=== PATIENT | female | born 1970 | race Caucasian/White ===

== ENCOUNTER 2018-05-17 12:40 | Emergency (ER) | payer OTHER ==
[~2018-05-17] VITALS: Ht 175.3 cm; Wt 64.9 kg
--- NOTE | 2018-05-17 12:53 | NUR ---
DR Garcia at the bedside for MSE.
--- NOTE | 2018-05-17 12:55 | NUR ---
PT WALKED INTO ER WITH PARENTS CO "DRINKING TOO MUCH". PT AXOX4, DENIES [place] WITHDRAWAL JUST BEING ANXIOUS AND NOT FEELNG WELL. PRT EVENTUALLY PLANNNG TO GO TO [facility] FOR AC[facility] RE[facility]. [facility] CONTACTED ALREADY. [facility] AWARE OF THE PT COMING TO THEM.
[2018-05-17 13:12] LABS: BASOPHILS # (AUTO) 0.1 K/uL (0.0-8.0); BASOPHILS % (AUTO) 1.2 % (0.0-2.0); EOSINOPHILS # (AUTO) 0.1 K/uL (0.0-0.7); EOSINOPHILS % (AUTO) 1.7 % (0.0-7.0); HEMATOCRIT 42.1 % (31.2-41.9); HEMOGLOBIN 14.3 g/dL (10.9-14.3); LYMPHOCYTES # (AUTO) 1.8 K/uL (20.0-40.0); LYMPHOCYTES % (AUTO) 31.2 % (20.5-51.5); MEAN CORPUSCULAR HGB CONC 34 g/dL (32.3-35.6); MEAN CORPUSCULAR VOLUME 106.1 fL (75.5-95.3); MONOCYTES # (AUTO) 0.4 K/uL (2.0-10.0); MONOCYTES % (AUTO) 6.2 % (0.0-11.0); NEUTROPHILS # (AUTO) 3.4 K/uL (1.8-8.9); NEUTROPHILS % (AUTO) 59.7 % (38.5-71.5); PLATELET COUNT (AUTO) 307 K/uL (179-408); RED BLOOD CELL COUNT(AUTO) 3.97 MIL/uL (3.63-4.92); WHITE BLOOD COUNT (AUTO) 5.7 K/uL (3.8-11.8)
[2018-05-17 13:21] LABS: CARBON DIOXIDE 23 mmol/L (21-32); CHLORIDE 103 mmol/L (98-107); CREATININE 0.6 mg/dL (0.6-1.3); GLUCOSE 132 mg/dL (74-106); POTASSIUM 3.9 mmol/L (3.5-5.1); UREA NITROGEN, BLOOD 12 mg/dL (7-18)
[2018-05-17 13:26] LABS: ALANINE AMINOTRANSFERASE 85 U/L (14-59); ALKALINE PHOSPHATASE 132 U/L (50-136); ASPARTATE AMINOTRANSFERASE 98 U/L (15-37); BILIRUBIN,DIRECT 0.2 mg/dL (0.0-0.2); BILIRUBIN,TOTAL 0.3 mg/dL (0.2-1.0); TOTAL PROTEIN, SERUM 7.7 g/dL (6.4-8.2)
[2018-05-17 13:27] LABS: ACETAMINOPHEN < 2.0 ug/mL (10-30)
[2018-05-17 13:30] LABS: *AMPHETAMINE, URINE NEGATIVE (NEGATIVE); *BARBITURATE, URINE NEGATIVE (NEGATIVE); *CANNABINOID, URINE NEGATIVE (NEGATIVE); *COCCAINE, URINE NEGATIVE (NEGATIVE); *OPIATE, URINE NEGATIVE (NEGATIVE); *PHENCYCLIDINE SCREEN,URINE NEGATIVE (NEGATIVE)
[2018-05-17 13:43] LABS: ETHANOL 382 MG/DL (0-0)
--- NOTE | 2018-05-17 13:49 | NUR ---
[facility]ERSON[facility] AT BEDSIDETALKING TO PT AND FAMILY MEMBERS
[2018-05-17 13:55] VITALS: BP 109/81
[2018-05-17] MEDS ORDERED: SUMA100T16 PO (16:17)
[2018-05-17] MEDS ORDERED: LEVO137T2 PO (16:17)
[2018-05-17] MEDS ORDERED: PHEN-824 PO (16:17)
[2018-05-17] MEDS ORDERED: AMOX1TAB16 PO (16:17)
[2018-05-17] MEDS ORDERED: RANI150T43 PO (16:17)
[2018-05-17] MEDS ORDERED: MELO-107 PO (16:17)
[2018-05-17] MEDS ORDERED: CHOL200059 PO (16:17)
[2018-05-17] MEDS ORDERED: TELM1TAB2 PO (16:17)
[2018-05-17] MEDS ORDERED: PHEN-633 PO (16:17)
[2018-05-17] MEDS ORDERED: ZOLP10TA6 PO (16:17)
[2018-05-17] MEDS ORDERED: ONDA4TAB11 PO (16:17)
[2018-05-17] MEDS ORDERED: FURO40TA5 PO (16:17)
[2018-05-17] MEDS ORDERED: ESCI20TA PO (16:17)
[2018-05-17] MEDS ORDERED: TOPI50TA24 PO (16:17)
[2018-05-17] MEDS ORDERED: METO100T7 PO (16:17)
[2018-05-17] MEDS ORDERED: FAMO-132 PO (16:17)
[2018-05-17 19:35] LABS: *BILIRUBIN,URIN NEGATIVE (NEGATIVE); *BLOOD, URINE Trace-lysed (NEGATIVE); *COLOR,URINE YELLOW (YELLOW); *KETONES,URINE NEGATIVE (NEGATIVE); *PROTEIN,URINE NEGATIVE (NEGATIVE); *UROBILINOGEN,URINE 0.2 E.U./dl (NORMAL); LEUKOCYTE ESTERASE ,URINE TRACE (NEGATIVE); NITRITE, URINE NEGATIVE (NEGATIVE); UGLUCOSE NEGATIVE (NEGATIVE)
[2018-05-17 19:41] LABS: *CLARITY,URINE SLIGHTLY CLOUDY (CLEAR)
[2018-05-17 19:43] LABS: BACTERIA,URINE RARE /HPF (NONE SEEN); SQUAMOUS EPITHELIAL CELL,UR FEW /HPF (NONE SEEN); WBC,URINE 0-3 /HPF (0-3)
[2018-05-21] MEDS ORDERED: ESCI20TA PO (13:15)
[2018-05-21] MEDS ORDERED: CLON0.1T14 PO (13:15)
[2018-05-21] MEDS ORDERED: HYDR-3895 PO (13:15)
[2018-05-21] MEDS ORDERED: QUET25TA PO (13:15)
== END 2018-05-17 13:56 | disposition home or self-care (01) ==
LOC: ER 12:40
DX: Z04.6 Encounter for general psychiatric examination, requested by authority (principal); F10.129 Alcohol abuse with intoxication, unspecified; Z90.710 Acquired absence of both cervix and uterus; Z88.0 Allergy status to penicillin; Z88.8 Allergy status to other drugs, medicaments and biological substances; Z91.041 Radiographic dye allergy status; Z91.040 Latex allergy status
CPT/HCPCS: 36415; 80048; 80076; 80307; 81001; 85025; 99283; G0480 ×2; G0481; A4663

== ENCOUNTER 2018-05-17 14:20 | Inpatient (IN) | payer OTHER ==
[~2018-05-17] VITALS: Ht 172.7 cm; Wt 63.5 kg
--- NOTE | 2018-05-17 15:15 | NUR ---
Pre admission Pre-admission assessment performed in the intake department of [facility]. Pt is A&O and ambulatory with a steady gait. She appears mildly intoxicated but answers questions appropriately. Vital signs are: B/P 139/87, HR 105, RR 16, O2 sat 96%, T 98.2. She is noted with facial flushing and is emotional with a loud tone of voice during the intake process. She reports that she has been drinking Wine 1-3 bottles of 750mL/day. She reports that she drank one glass this morning. Pt is stable and admission is [facility].
[2018-05-17 15:30] VITALS: BP 139/87
[2018-05-17] MEDS ORDERED: ZOLP10TA6 PO (16:17)
[2018-05-17] MEDS ORDERED: TOPI50TA24 PO (16:17)
[2018-05-17] MEDS ORDERED: SUMA100T16 PO (16:17)
[2018-05-17] MEDS ORDERED: PHEN-824 PO (16:17)
[2018-05-17] MEDS ORDERED: AMOX1TAB16 PO (16:17)
[2018-05-17] MEDS ORDERED: PHEN-633 PO (16:17)
[2018-05-17] MEDS ORDERED: RANI150T43 PO (16:17)
[2018-05-17] MEDS ORDERED: CHOL200059 PO (16:17)
[2018-05-17] MEDS ORDERED: TELM1TAB2 PO (16:17)
[2018-05-17] MEDS ORDERED: LEVO137T2 PO (16:17)
[2018-05-17] MEDS ORDERED: FAMO-132 PO (16:17)
[2018-05-17] MEDS ORDERED: MELO-107 PO (16:17)
[2018-05-17] MEDS ORDERED: METO100T7 PO (16:17)
[2018-05-17] MEDS ORDERED: FURO40TA5 PO (16:17)
[2018-05-17] MEDS ORDERED: ESCI20TA PO (16:17)
[2018-05-17] MEDS ORDERED: ONDA4TAB11 PO (16:17)
[2018-05-17] MEDS ORDERED: LORAZEPAM 2 MG/1 ML VIAL IM PRN (16:30)
[2018-05-17] MEDS ORDERED: LOPERAMIDE HCL 2 MG CAPSULE PO PRN ×2 (16:30)
[2018-05-17] MEDS ORDERED: DIAZEPAM 5 MG TABLET PO PRN (16:30)
[2018-05-17] MEDS ORDERED: diphenhydrAMINE 50 MG CAPSULE PO PRN (16:30)
[2018-05-17] MEDS ORDERED: MAGNESIUM HYDROXIDE 30 ML LIQUID UDC PO PRN (16:30)
[2018-05-17] MEDS ORDERED: MIRALAX 17 GM POWD.PACK PO PRN (16:30)
[2018-05-17] MEDS ORDERED: DIAZEPAM 10 MG TABLET PO PRN ×2 (16:30)
[2018-05-17] MEDS ORDERED: MAG HYDROX/AL HYDROX/SIMETH 30 ML LIQUID UDC PO PRN (16:30)
[2018-05-17] MEDS ORDERED: ONDANSETRON 4 MG/2 ML VIAL IM PRN (16:30)
[2018-05-17 17:09] VITALS: BP 126/79
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
[2018-05-17 18:16] LABS: *URINE HCG, QUAL NEGATIVE (NEGATIVE)
[2018-05-17] MEDS ORDERED: THIAMINE HCL 200 MG/2 ML VIAL IM ONE (18:22)
[2018-05-17] MEDS: CLONIDINE HCL 0.1 MG TABLET PO PRN (18:48)
--- NOTE | 2018-05-17 18:48 | NUR ---
PRN GIVEN Pt was c/o anxiety and stating she wants to go home. Clonidine 0.1mg PO PRN was given as ordered. Encouraged increase fluid intake. Will continue to monitor.
--- NOTE | 2018-05-17 19:10 | NUR ---
END OF SHIFT Endorsed to manager shift nurse, 47 yr old female, AA&Ox4. Pt is a newly admit for ETOH withdrawal and is to start on 4 day Valium taper tomorrow on 05/18/18. Pt was c/o anxiety and stating she want to go home. Clonidine 0.1mg PO PRN was given. Pt is on fall and seizure precautions. Call light is within reach.
--- NOTE | 2018-05-17 19:45 | NUR ---
START OF SHIFT NOTE Rcvd report from outgoing nurse. Pt is a 47 y/o female A/O to person, place, time, and purpose. Pt was admitted for medically supervised withdrawal from ETOH. Pt is to start a 4 day Valium taper 05/18. Pt has been intoxicated upon arrival to the unit and has not currently been experiencing any s/s of withdrawal expect for agitation. Pt rcvd PRN Clonidine and was noted effective by outgoing nurse. Call light is within reach. Pt will continue to be monitored and needs met.
--- NOTE | 2018-05-17 19:48 | NUR ---
PRN CLONIDINE REASSESSMENT Pt is obviously anxious and restless. Medication noted ineffective. Will assess giving PRN Valium.
[2018-05-17 20:03] VITALS: BP 121/79
--- NOTE | 2018-05-17 20:12 | NUR ---
CIWA ASSESSMENT CIWA 16. Pt presenting w/ tremors, sweats, flushing, body aches, nausea w/ no emesis, anxiety, and restlessness. V/S: T:97.9, P:91, RR:16, SPO2:97, BP:121/79.
[2018-05-17] MEDS: IBUPROFEN 600 MG TABLET PO PRN (20:39)
--- NOTE | 2018-05-17 20:39 | NUR ---
PRN VALIUM, MOTRIN, AND BENADRYL ADMINISTRATION Valium 20mg for CIWA of 16, Motrin 600mg for body aches/pain, and Benadryl 50mg for sleep were given. Will reassess pt in 1 hr.
[2018-05-17] MEDS: ONDANSETRON ODT 4 MG TAB.RAPDIS SL PRN (20:48)
--- NOTE | 2018-05-17 20:48 | NUR ---
PRN ZOFRAN ADMINISTRATION Zofran 4mg SL given for nausea w/ no emesis. Will reassess pt in 1 hr.
--- NOTE | 2018-05-17 21:39 | NUR ---
PRN VALIUM, MOTRIN, AND BENADRYL REASSESSMENT Pt is in bed w/ her eyes closed. Pt's respirations are unlabored and even.
--- NOTE | 2018-05-17 21:48 | NUR ---
PRN ZOFRAN REASSESSMENT Pt is im bed w/ her eyes closed. Pt's respirations are unlabored and even.
[2018-05-17] MEDS ORDERED: Medication Not On Formulary EA (Meloxicam 15 MG) PO SCH (22:00)
[2018-05-17] MEDS ORDERED: Medication Not On Formulary EA (Topiramate 50 MG) PO SCH (22:00)
[2018-05-17] MEDS ORDERED: AMOXICILLIN-CLAVUL 875-125MG TABLET PO ONE (22:45)
[2018-05-17] MEDS ORDERED: AMOXICILLIN-CLAVUL 875-125MG TABLET ONE (23:01)
[2018-05-17] MEDS: TOPIRAMATE 25 MG TABLET PO SCH (23:06)
--- NOTE | 2018-05-18 00:12 | NUR ---
CIWA DEFERRED Pt is in bed w/ her eyes closed. Pt's respirations are unlabored and even.
--- NOTE | 2018-05-18 04:05 | NUR ---
CIWA DEFERRED Pt is in bed w/ her eyes closed. Pt's respirations are unlabored and even.
--- NOTE | 2018-05-18 07:09 | NUR ---
END OF SHIFT NOTE Endorsed pt to oncoming nurse. Pt is a 47 y/o female A/O to person, place, time, and purpose. Pt was admitted for medically supervised withdrawal from ETOH. Pt is to start a 4 day Valium taper 05/18. Pt began to present w/ anxiety, agitation, restless legs, sweats, tremors, and chills. Pt denies any S/I or H/I. PRN Valium for CIWA of 16, Motrin for body aches, Benadryl for sleep, and Zofran for nausea were given and noted effective. Pts fluid intake was 1500ml and she slept for 9hrs. Last CIWA 16 @ 1999. Call light is within reach.
--- NOTE | 2018-05-18 07:35 | NUR ---
START OF SHIFT Pt is a 47 yr old female, AA&Ox4. Pt was admitted on 05/17/18 for ETOH withdrawal and is to start on 4 day Valium taper as ordered. Received report from vehicle sales professional nurse. Pt was given Valium PRN, Motrin PRN, Benadryl PRN and Zofran PRN during the night. Medication was effective. Pt slept for 9 hrs. Last CIWA score was 16. Pt is c/o body aches, anxiety, sweats and chills. Pt is noted with tremors on BUE. Skin is warm and moist to touch. Pt was encouraged increase fluid intake. Safety precautions observed. Call light is within reach. Will continue to monitor.
[2018-05-18 07:48] LABS: EOSINOPHILS # (AUTO) 0.1 K/uL (0.0-0.7); EOSINOPHILS % (AUTO) 2.7 % (0.0-7.0); HEMATOCRIT 38.8 % (31.2-41.9); HEMOGLOBIN 13.2 g/dL (10.9-14.3); LYMPHOCYTES % (AUTO) 21.2 % (20.5-51.5); MEAN CORPUSCULAR HEMOGLOBIN 36.2 uug (24.7-32.8); MEAN CORPUSCULAR HGB CONC 34 g/dL (32.3-35.6); MEAN CORPUSCULAR VOLUME 106.3 fL (75.5-95.3); MONOCYTES # (AUTO) 0.2 K/uL (2.0-10.0); MONOCYTES % (AUTO) 5.1 % (0.0-11.0); NEUTROPHILS # (AUTO) 3.3 K/uL (1.8-8.9); PLATELET COUNT (AUTO) 202 K/uL (179-408); RED BLOOD CELL COUNT(AUTO) 3.65 MIL/uL (3.63-4.92); WHITE BLOOD COUNT (AUTO) 4.8 K/uL (3.8-11.8)
[2018-05-18] MEDS: LEVOTHYROXINE SODIUM 137 MCG TABLET PO SCH (07:53)
[2018-05-18 08:00] VITALS: BP 121/81
[2018-05-18 08:08] LABS: BILIRUBIN,TOTAL 1.2 mg/dL (0.2-1.0); CREATININE 0.6 mg/dL (0.6-1.3); POTASSIUM 4.4 mmol/L (3.5-5.1); TOTAL PROTEIN, SERUM 6.8 g/dL (6.4-8.2)
[2018-05-18 08:19] LABS: THYROID STIMULATING HORMONE 2.537 mIU/mL (0.358-3.740)
[2018-05-18] MEDS: MULTIVITAMINS,THERAPEUTIC TABLET PO SCH (08:43)
[2018-05-18] MEDS: TOPIRAMATE 25 MG TABLET PO SCH ×2 (08:43→16:32)
[2018-05-18] MEDS: CHOLECALCIFEROL 1,000 UNIT TABLET PO SCH (08:43)
[2018-05-18] MEDS: THIAMINE HCL 100 MG TABLET PO SCH (08:43)
[2018-05-18] MEDS: IBUPROFEN 600 MG TABLET PO PRN (08:43)
[2018-05-18] MEDS: DIAZEPAM 5 MG TABLET PO SCH ×4 (08:43→20:47)
[2018-05-18] MEDS: FOLIC ACID 1 MG TABLET PO SCH (08:43)
--- NOTE | 2018-05-18 08:43 | NUR ---
PRN GIVEN Pt was c/o BLE pain 5/10 and was observed wit restless legs. Pt is fidgety in bed and observed flushed. CIWA score at 0800 was 14. Pt was given Motrin 600mg PO PRN for pain mgt. Pt was encouraged increase fluid intake for hydration. Will continue to monitor.
--- NOTE | 2018-05-18 08:45 | NUR ---
MEDICATION REFUSE Pt refused to take Metoprolol Succinate 100mg PO as scheduled at 0900. Pt states, "I only take that in case of emergencies". was made aware. Will continue to f/u.
[2018-05-18] MEDS ORDERED: METOPROLOL SUCCINATE XL 50 MG TAB.SR.24H PO SCH (09:00)
[2018-05-18] MEDS ORDERED: [UNRECOGNIZED DRUG - OTHER] PO SCH (09:00)
[2018-05-18] MEDS ORDERED: TUBERCULIN,PURIF.PROT.DERIV. 5 TU/0.1 ML TEST ID ONE (09:00)
[2018-05-18] MEDS ORDERED: 4 DAY TAPER VALIUM-SERENITY PROTOCOL PO PRN (09:00)
--- NOTE | 2018-05-18 09:43 | NUR ---
PRN RE-ASSESSMENT Motrin 600mg PO PRN was effective. Pt states, "I still have some pain but it feels better". Will continue to monitor.
[2018-05-18] MEDS ORDERED: MELOXICAM 7.5 MG TABLET PO PRN (10:30)
[2018-05-18] MEDS: ESCITALOPRAM OXALATE 10 MG TABLET PO SCH (10:58)
[2018-05-18] MEDS ORDERED: TELMISARTAN PO SCH (11:00)
[2018-05-18] MEDS ORDERED: HCTZ PO SCH (11:00)
[2018-05-18 12:00] VITALS: BP 137/85
[2018-05-18] MEDS: FAMOTIDINE 20 MG TABLET PO SCH (12:22)
[2018-05-18] MEDS: ONDANSETRON ODT 4 MG TAB.RAPDIS SL PRN ×2 (13:20→19:41)
--- NOTE | 2018-05-18 13:20 | NUR ---
PRN GIVEN Pt was c/o feeling nauseous after eating lunch. Zofran 4mg SL PRN was given as ordered. encouraged increase fluid intake. Will continue to monitor.
--- NOTE | 2018-05-18 14:20 | NUR ---
PRE-REASSESSMENT Zofran PRN was effective. Pt denies any n/v. Encouraged increase fluid intake. Will continue to monitor.
[2018-05-18 16:00] VITALS: BP 111/79
[2018-05-18] MEDS: KETOROLAC TROMETHAMINE 30 MG INJ IM PRN ×2 (16:33→23:50)
--- NOTE | 2018-05-18 16:38 | NUR ---
PRN GIVEN Pt was c/o generalized body aches 02/05. Pt is noted fidgety and restless. Toradol 30mg IM PRN was given as ordered. Encouraged increase fluid intake. Will continue to monitor.
--- NOTE | 2018-05-18 17:38 | NUR ---
PRN RE-ASSESSMENT Toradol PRN was effective. Pt denies any pain or discomfort.
--- NOTE | 2018-05-18 19:17 | NUR ---
END OF SHIFT Pt is a 47 yr old female, AA&Ox4. Pt was admitted on 05/17/18 for ETOH withdrawal and is on 4 day Valium taper as ordered. Pt has been observed with increase fatigue and remained in bed throughout the day. Pt was c/o increase anxiety, generalized body aches, lack of appetite, sweats, chills and nausea. Pt was observed with tremors on BUE and facial redness. Pt was given Motrin PRN, Zofran PRN and Toradol PRN was given as ordered. Medication was effective. Last CIWA score was 16 at 1600. Pt was encouraged increase fluid intake. Safety precautions observed. Endorsed to scene shifter nurse to continue with care.
--- NOTE | 2018-05-18 19:34 | NUR ---
START OF SHIFT Patient is a 47-year-old female admitted on 05/17/18 for ETOH withdrawal. Patient is on a 4-day Valium taper, tolerating moderately well, today being second day of taper. Patients last CIWA was 16 per endorsement. Patient received the following PRN medications today: Motrin, Zofran SL, and Toradol IM. PRN medications were noted to be effective. Upon assessment, patient was anxious, restlessness, slightly nauseous, complaining of headache. Patient is disheveled and appears sad. Patient is on fall and seizure precautions with no prior seizure history. Safety measures in place, side rails up x2, bed locked in low position, call light within reach. Will continue to monitor.
[2018-05-18] MEDS: ACETAMINOPHEN 325 MG TABLET PO PRN (19:35)
--- NOTE | 2018-05-18 19:35 | NUR ---
PRN TYLENOL Patient reports headache 02/05 and requested Imitrex from the MD for "migraines" but the order was not placed and the patient recently received PRN Motrin. PRN Tylenol 650mg given PO. Safety measures in place, call light within reach. Will monitor for effectiveness.
[2018-05-18] MEDS: CLONIDINE HCL 0.1 MG TABLET PO PRN (19:42)
--- NOTE | 2018-05-18 19:42 | NUR ---
PRN ZOFRAN & CLONIDINE Patient reports nausea with no emesis. Patient complains of chills, sweats, and hot-cold flashes, as well as anxiety and restlessness. PRN Zofran given SL at 1940 and PRN Clonidine given PO at 1941. Safety measures in place, call light within reach. Will monitor for effectiveness.
[2018-05-18 20:00] VITALS: BP 108/72
--- NOTE | 2018-05-18 20:00 | NUR ---
CIWA 20 Patient is tearful, anxious, irritable and restless. She is diaphoretic, tremors noted, complaining of headache and nausea with no emesis. CIWA is 20. SN to administer meds as ordered. Will continue to monitor.
--- NOTE | 2018-05-18 20:11 | NUR ---
PRN ZOFRAN REASSESSMENT Patient reports nausea has only improved slightly, stating, "I just feel really sick." PRN Zofran noted to be ineffective at this time. Safety measures in place, side rails up x2, bed locked in low position, call light within reach. Will continue to monitor.
--- NOTE | 2018-05-18 20:35 | NUR ---
PRN TYLENOL REASSESSMENT Patient reports headache 7/10 at this time. PRN Tylenol noted to be slightly effective. Safety measures in place, side rails up x2, bed locked in low position, call light within reach. Will continue to monitor.
--- NOTE | 2018-05-18 20:42 | NUR ---
PRN CLONIDINE REASSESSMENT Patient reports "barely" any improvement in chills and diaphoresis, anxiety and restlessness. PRN Clonidine not effective at this time. Safety measures in place, call light within reach. Will continue to monitor.
--- NOTE | 2018-05-18 21:06 | NUR ---
PRN ZOFRAN IM Patient reports that nausea persists and is unbearable. Patient denies emesis. PRN Zofran given IM. Safety measures in place, call light within reach. Will monitor for effectiveness.
--- NOTE | 2018-05-18 21:36 | NUR ---
PRN ZOFRAN IM REASSESSMENT Patient reports that nausea has improved "a little." PRN Zofran noted to be slightly effective. Patient denies emesis. Safety measures in place, side rails up x2, bed locked in low position, call light within reach. Will continue to monitor.
[2018-05-18] MEDS ORDERED: AMOXICILLIN-CLAVUL 875-125MG TABLET PO SCH (22:00)
[2018-05-18] MEDS: QUETIAPINE FUMARATE 25 MG TABLET PO PRN (23:50)
--- NOTE | 2018-05-18 23:50 | NUR ---
PRN TORADOL IM & SEROQUEL PO Patient reports terrible body aches, residual headache and difficulty sleeping. PRN Toradol given IM, PRN Seroquel given PO. Safety measures in place, side rails up x2, bed locked in low position, call light within reach. Will monitor for effectiveness.
[2018-05-19] VITALS: BP 111/70
--- NOTE | 2018-05-19 | NUR ---
CIWA 20 Patient continues to state, "I feel terrible." Patient reports anxiety, nausea, headache and body aches, diaphoresis, and is noted to have tremors. Patient is flushed and shaky, restless and emotional. Current CIWA 20. Safety measures in place, call light within reach. Will continue to monitor.
--- NOTE | 2018-05-19 00:50 | NUR ---
PRN TORADOL & SEROQUEL REASSESSMENT Patient observed sleeping in bed with eyes closed, respirations even and unlabored. Unable to reassess at this time. Safety measures in place, side rails up x2, bed locked in low position, call light within reach. Will continue to monitor.
[2018-05-19 04:00] VITALS: BP 106/74
--- NOTE | 2018-05-19 04:00 | NUR ---
CIWA DEFERRED CIWA deferred at this time, due to patient sleeping; to be assessed and scored while patient is awake. Safety measures in place, side rails up x2, bed locked in low position, call light within reach. Will continue to monitor.
[2018-05-19] MEDS ORDERED: METHOCARBAMOL 750 MG TABLET PO ONE (04:45)
--- NOTE | 2018-05-19 04:45 | NUR ---
ONE-TIME ROBAXIN, CIWA 16 Patient is awake as complaining of body aches. Current CIWA is 16 for anxiety, restlessness, tremors, diaphoresis. One-time Robaxin 750mg given PO. Safety measures in place, side rails up x2, bed locked in low position, call light within reach. Will continue to monitor.
--- NOTE | 2018-05-19 07:30 | NUR ---
END OF SHIFT Patient is a 47-year-old female admitted on 05/17/18 for ETOH withdrawal. Patient is on a 4-day Valium taper, tolerating moderately well, today will be the third day of taper. Patients last CIWA was 16. Patient received the following PRN medications today: PRN Zofran SL, PRN Zofran IM, Clonidine, Tylenol, Toradol IM, and Seroquel. All PRN medications were noted to be mildly effective. Patient also received a one-time dose of Robaxin for generalized body aches (myalgia). Patient slept for 7 hours, total intake of 400mL, void x1, stool x0. Patient is on fall and seizure precautions with no prior seizure history. Safety measures in place, side rails up x2, bed locked in low position, call light within reach. Will endorse to day shift.
--- NOTE | 2018-05-19 07:40 | NUR ---
Start of shift Report received, Patient is a 47-year-old female admitted on 05/17/18 for ETOH withdrawal. Patient is on a 4-day Valium taper, tolerating moderately well, today will be the third day of taper. Per night court magistrate pt most current CIWA score was 16, per night court magistrate pt presented with anxiety, agitation, emotional volatility, sweats, insomnia, and pain. Pt is very isolative, stays in room most of the time and only comes out for group. Pt encouraged to drink plenty of water to help with detox process. Pts room is clustered with personal items scattered around the room as well as food wraps and beverage bottles. Pt received PRN Zofran IM and sub lingual, Toradol, Tylenol, Clonidine and Seroquel, per night court magistrate nurse medication was effective. All safety measures in place will continue to monitor.
[2018-05-19 08:00] VITALS: BP 111/82
--- NOTE | 2018-05-19 08:00 | NUR ---
[facility] 14 Patient presents with lethargy,fatigue,fine hand tremors,restlessness and diaphoresis and irritability
[2018-05-19 08:06] LABS: HEPATITIS B SURFACE AG Negative (Negative)
[2018-05-19] MEDS: FAMOTIDINE 20 MG TABLET PO SCH (09:52)
[2018-05-19] MEDS: CHOLECALCIFEROL 1,000 UNIT TABLET PO SCH (09:53)
[2018-05-19] MEDS: DIAZEPAM 5 MG TABLET PO SCH ×3 (09:53→20:04)
[2018-05-19] MEDS: LEVOTHYROXINE SODIUM 137 MCG TABLET PO SCH (09:53)
[2018-05-19] MEDS: ESCITALOPRAM OXALATE 10 MG TABLET PO SCH (09:53)
[2018-05-19] MEDS: MULTIVITAMINS,THERAPEUTIC TABLET PO SCH (09:53)
[2018-05-19] MEDS: FOLIC ACID 1 MG TABLET PO SCH (09:53)
[2018-05-19] MEDS: THIAMINE HCL 100 MG TABLET PO SCH (09:53)
[2018-05-19] MEDS: TOPIRAMATE 25 MG TABLET PO SCH ×2 (09:53→17:00)
[2018-05-19] MEDS: TELMISARTAN HCTZ PO SCH (10:40)
[2018-05-19 12:00] VITALS: BP 125/82
[2018-05-19] MEDS: KETOROLAC TROMETHAMINE 30 MG INJ IM PRN ×2 (14:53→22:55)
--- NOTE | 2018-05-19 14:53 | NUR ---
PRN MEDICATION Pt c/o pain in her left leg that radiated down and up, pt rated he pain at 7/10 requested something for relief, PRN Toradol IM administered per MD orders, will continue to monitor
--- NOTE | 2018-05-19 15:07 | NUR ---
Therapist prompted client to attend group therapy sessions. Client stated she is not interested.
--- NOTE | 2018-05-19 15:59 | NUR ---
PRN REASSESSMENT Medication effective pts pain has decreased to 4/10. will continue to monitor
[2018-05-19 16:00] VITALS: BP 132/80
--- NOTE | 2018-05-19 19:10 | NUR ---
End of shift Report given to night monitor nurse plan of care followed vital signs monitored closely Q4H. Withdrawal symptoms were closely monitored, medication given as scheduled. Initial CIWA 14. Pt encouraged adequate PO fluid intake as tolerated. Pt presented with sweats, flushed face, anxiety some agitation and yawning during the day. Pt received the scheduled taper medication as ordered. Pt received PRN Toradol IM for pain of 7/10 in her left leg. Last CIWA 11. Pt reported that the taper medications have been working well at controlling the withdrawal symptoms. Pt ate all of the meals, pt attended all groups and activities to learn new coping skills to prevent relapse. Pt denied any SI/HI. All safety measures in place, bed in lowest locked position, call light within reach. All needs met and attended.
--- NOTE | 2018-05-19 19:30 | NUR ---
Start of Shift Patient Received. Per endorsement, Patient is a 47 year old female is currently receiving a modified 4 day Valium taper for ETOH withdrawal. Patient received PRN Toradol with medication noted to be effective. Last noted CIWA 11. Patient is noted to be isolative to room and non compliant with group and social activities. Upon rounds, patient is noted in her room, in bed, awake, alert and verbally responsive. Patient is able to verbalize Im due for my valium soon. I want to take my medication and go to sleep. Reviewed 2100 medications with patient and he verbalized understanding. All needs attended to promptly. Will continue plan of care as ordered.
--- NOTE | 2018-05-19 20:00 | NUR ---
CIWA Assessment/PRN Medication Administration Patient is noted verbalizing increased anxiety, chills, sweats, restlessness, easily agitated, tremulous, and inability of falling asleep. CIWA noted to be 14. PRN Clonidine and Seroquel administered.
[2018-05-19 20:02] VITALS: BP 113/70
[2018-05-19] MEDS: CLONIDINE HCL 0.1 MG TABLET PO PRN (20:04)
[2018-05-19] MEDS: QUETIAPINE FUMARATE 25 MG TABLET PO PRN (20:04)
--- NOTE | 2018-05-19 21:00 | NUR ---
PRN Medication Reassessment Patient is noted in bed, awake, alert and verbally responsive. Patient is noted watching TV. patient is able to verbalize "I'm slowly falling asleep. But I think I'm going to go have another cigarette." PRN Seroquel and Clonidine noted to be not effective. Will continue to monitor.
[2018-05-19] MEDS: ONDANSETRON ODT 4 MG TAB.RAPDIS SL PRN (22:56)
--- NOTE | 2018-05-19 22:56 | NUR ---
PRN Medication Administration Patient is noted verbalizing "I feel like total crap. My body hurts, my head hurts." Patient is also noted to verbalize increased nausea, episodes of loose bowels, and increased anxiety. PRN Vistaril, Imodium, Zofran, and Toradol administered. patient is also noted to verbalize "how many more times do I have to have someone wake me up tonight? I dont want to keep getting woken up. It makes it hard to go back to sleep." Risks explained. Patient states "i just want to sleep please." Will continue to monitor.
[2018-05-19] MEDS: HYDROXYZINE PAMOATE 25 MG CAPSULE PO PRN (23:04)
--- NOTE | 2018-05-20 | NUR ---
PRN Medication Reassessment/CIWA and Vitals Patient is noted in bed with eyes closed. Breathing even and non labored. No signs of restlessness, discomfort, or facial grimacing. PRN Toradol, Vistaril, Imodium, and Zofran administered with medication noted to be effective. Vitals refused upon administration of medications. CIWA not able to be completed as per order. Will continue to monitor.
--- NOTE | 2018-05-20 04:25 | NUR ---
CIWA Assessment Patient is noted in bed with eyes closed. Breathing even and non labored. No signs of restlessness or facial grimacing noted. CIWA not able to be completed as per order. Vitals Refused. Will continue to monitor.
[2018-05-20] MEDS: ACETAMINOPHEN 325 MG TABLET PO PRN (06:16)
[2018-05-20] MEDS: HYDROXYZINE PAMOATE 25 MG CAPSULE PO PRN ×2 (06:16→14:01)
--- NOTE | 2018-05-20 06:20 | NUR ---
PRN Medication Administration Patient is noted verbalizing increased pain and increased anxiety. PRN Vistaril and Tylenol administered. Will continue to monitor.
[2018-05-20] MEDS: LEVOTHYROXINE SODIUM 137 MCG TABLET PO SCH (06:30)
--- NOTE | 2018-05-20 07:02 | NUR ---
End of Shift Patient is noted in bed awake, alert and verbally responsive. Breathing even and non labored. Patient continues on a modified 4 day Valium taper for ETOH withdrawal. Patient received PRN Toradol, Imodium, Zofran, Vistaril, Clonidine, Seroquel, and Tylenol. Last noted CIWA 14. Patient continues to be monitored for increased anxiety, agitation, restlessness, tremors, chills, sweats, insomnia, diarrhea, and generalized body aches. All needs attended to promptly. Will endorse to continue plan of care as ordered.
--- NOTE | 2018-05-20 07:20 | NUR ---
Start of Shift Patient is a 47 yr old female who was admitted to [facility] on 05/17/18 for a medically supervised withdrawal from ETOH ( Wine), she has been placed on a 4 day Valium taper and today is day 4. PRN medications given on PM shift : Clonidine, Seroquel, Vistaril x2, Imodium, Zofran, Tylenol and Toradol, she slept for 6 hours and last CIWA was 14. Currently she is in bed asleep, breathing even and unlabored, side rails up x2, call light within reach. Continue to follow MD plan of care and offer support and encouragement.
[2018-05-20 08:00] VITALS: BP 93/56
[2018-05-20] MEDS: TOPIRAMATE 25 MG TABLET PO SCH ×2 (08:33→16:15)
[2018-05-20] MEDS: TELMISARTAN HCTZ PO SCH (08:33)
[2018-05-20] MEDS: FOLIC ACID 1 MG TABLET PO SCH (08:33)
[2018-05-20] MEDS: FAMOTIDINE 20 MG TABLET PO SCH (08:33)
[2018-05-20] MEDS: THIAMINE HCL 100 MG TABLET PO SCH (08:33)
[2018-05-20] MEDS: CHOLECALCIFEROL 1,000 UNIT TABLET PO SCH (08:33)
[2018-05-20] MEDS: DIAZEPAM 5 MG TABLET PO SCH ×2 (08:33→20:36)
[2018-05-20] MEDS: ESCITALOPRAM OXALATE 10 MG TABLET PO SCH (08:34)
[2018-05-20] MEDS: MULTIVITAMINS,THERAPEUTIC TABLET PO SCH (08:34)
--- NOTE | 2018-05-20 09:00 | NUR ---
CIWA 14 Patient presents with increased anxiety, irritability, chills, diaphoresis, rib pain, lethargy and restlessness Scheduled Valium 5mg PO given, will also give Toradol 30mg IM
[2018-05-20 09:28] LABS: BILIRUBIN,TOTAL 0.3 mg/dL (0.2-1.0); CREATININE 0.8 mg/dL (0.6-1.3); POTASSIUM 4.3 mmol/L (3.5-5.1); TOTAL PROTEIN, SERUM 6.8 g/dL (6.4-8.2)
[2018-05-20] MEDS: KETOROLAC TROMETHAMINE 30 MG INJ IM PRN ×2 (09:39→20:53)
--- NOTE | 2018-05-20 09:40 | NUR ---
PRN Toradol 30mg IM given for left side rib pain and bruising 02/05 will reassess
--- NOTE | 2018-05-20 10:40 | NUR ---
PRN Reassess patient states Toradol effective for left side rib pain/ bruising. pain level now 4/10
[2018-05-20 12:00] VITALS: BP 88/58
--- NOTE | 2018-05-20 12:00 | NUR ---
PRANAV 13 Patient presents with increased anxiety, irritability, chills, diaphoresis, rib pain, lethargy and restlessnes Toradol 30mg IM given @ 0940 with positive results for pain relief
[2018-05-20] MEDS: ONDANSETRON ODT 4 MG TAB.RAPDIS SL PRN ×2 (14:02→20:52)
[2018-05-20] MEDS: CLONIDINE HCL 0.1 MG TABLET PO PRN (14:02)
--- NOTE | 2018-05-20 14:02 | NUR ---
PRN Clonidine 0.1mg PO and Vistaril 50mg PO given for increased anxiety/ agitation Zofran 4mg SL given for C/O nausea, no emesis
--- NOTE | 2018-05-20 14:59 | NUR ---
PRN Reassess Medications effective, patient resting comfortably in bed, no nausea
--- NOTE | 2018-05-20 15:07 | NUR ---
Endorsement Endorsed care, all pertinent information relayed, last WA 13 @ 1200
--- NOTE | 2018-05-20 15:08 | NUR ---
Assumed Care: Assumed care for the patient at this time. Patient is a 47 year old female admitted for ETOH withdrawal who was placed on a 4-day Valium taper as ordered. Per endorsement, patient was given PRN Toradol, Vistaril, Clonidine and Zofran with help. Last CIWA 12. Patient is in her room at this time. Will continue to monitor and encourage to attend group.
[2018-05-20 16:00] VITALS: BP 90/50
--- NOTE | 2018-05-20 16:05 | NUR ---
CIWA Assessment: CIWA 12, patient presents with mild nausea, anxiety, agitation, sweats and gross tremors. Will medicate patient as ordered.
--- NOTE | 2018-05-20 19:05 | NUR ---
End of Shift Notes: Patient continues to be on 4-day Valium taper as ordered. VS monitored closely. No significant abnormalities noted. Withdrawal symptoms were closely monitored. Initial CIWA 13, patient presented with nausea, chills, hot flashes, anxiety, agitation, panic attacks, generalized discomfort and fatigue. Medicated patient with Toradol, Vistaril, Clonidine and Zofran as ordered. Last CIWA 12. Patient verbalizes that Valium has been effective in reducing his withdrawal symptoms. Patient was encouraged to attend group and activities due to self isolation. Appetite good. Oral fluids encouraged. All needs met and attended. Will continue to monitor closely.
[2018-05-20 20:00] VITALS: BP 104/55
--- NOTE | 2018-05-20 20:00 | NUR ---
Start of Shift Pt is a 47 year old female admitted ETOH withdrawal, placed on a 4 day Valium taper. At time of assessment, pt presents in room watching television. Room is noted to be in messy state, with candy wrapper all throughout room. Pt is seen in bed eating chocolate bars with wrappers throw on her bed. Pt is alert/oriented x4. Upon assessment, pt presents with anxiety, irritability, restlessness, skin is noted with sweat and is flushed and tremors felt upon touch. [facility] 10 - scheduled medications scheduled. Safety measures in place, will continue to monitor.
[2018-05-20] MEDS: QUETIAPINE FUMARATE 25 MG TABLET PO PRN (20:51)
--- NOTE | 2018-05-20 21:16 | NUR ---
PRN Administration Pt reports feeling generalized body pain 8/10, "from my head to my back". Pt also reports feeling nauseous and requests sleeping medication. Toradol inj PRN, Zofran 4 ODT PRN and Seroquel 50mg PRN administered. Safety measures in place, will continue to monitor.
--- NOTE | 2018-05-20 22:16 | NUR ---
PRN Reassessment Upon reassessment, pt is noted to be sleeping, resp even/unlabored. medications effective, safety measures in place, will continue to monitor.
[2018-05-21] VITALS: BP 95/61
--- NOTE | 2018-05-21 | NUR ---
CIWA Deferred CIWA deferred d/t pt sleeping, to assess while pt is awake as ordered. BP 95/61, HR 81, resp 17, SpO2 98% RA, Temp 98.[address], will continue to monitor
--- NOTE | 2018-05-21 02:00 | NUR ---
CIWA Assessment/ PRN Administration CIWA 9 - Pt is anxious, skin clammy/flushed, reports hot/cold chills. Vistaril 50mg PRN administered. Maalox administered for heartburn. Safety measures in place, will continue to monitor.
[2018-05-21] MEDS: HYDROXYZINE PAMOATE 25 MG CAPSULE PO PRN ×3 (02:04→22:18)
--- NOTE | 2018-05-21 03:00 | NUR ---
PRN Reassessment Pt is in bed sleeping, eyes closed with resp even/unlabored. Safety measures in place, will continue to monitor.
--- NOTE | 2018-05-21 04:00 | NUR ---
CIWA Deferred CIWA deferred d/t pt sleeping, to assess while pt is awake PT refused to woken up for 0400 VS assessment. Safety measures in place, will continue to monitor
[2018-05-21] MEDS: LEVOTHYROXINE SODIUM 137 MCG TABLET PO SCH (06:59)
--- NOTE | 2018-05-21 07:00 | NUR ---
End of Shift Pt is a 47 year old female admitted ETOH withdrawal, placed on a 4 day Valium taper. During shift, pt presents in room watching television with room noted to be in messy state, with candy wrappers all throughout room. Pt was seen in bed eating chocolate bars with wrappers throw on her bed. Pt presented with anxiety, irritability, restlessness, skin is noted with sweat and is flushed and tremors felt upon touch - scheduled taper medications administered along with Toradol inj for generalized pain, Zofran for nausea and Seroquel for sleep. At 0200, Vistaril and Maalox administered for anxiety and heartburn. CIWA 9 . EKG scheduled for AM for drug interaction. Amylase, Lipase and liver function scheduled to be drawn in AM. Pt slept for 4 hrs, intake of 2065 ml PO, and voids x3. Safety measures in place, endorsed to day shift nurse.
--- NOTE | 2018-05-21 07:17 | NUR ---
Start of Shift Patient is a 47 yr old female who was admitted to [facility] on 05/17/18 for a medically supervised withdrawal from ETOH ( Wine), she has completed a 4 day Valium taper. PRN medications given on PM shift : Toradol, Seroquel, Vistaril, Maalox and Zofran, she slept for 5 hours and last CIWA was 9. Currently she is in bed asleep, breathing even and unlabored, side rails up x2, call light within reach. Continue to follow MD plan of care and offer support and encouragement.
[2018-05-21 07:58] LABS: BILIRUBIN,DIRECT 0.1 mg/dL (0.0-0.2); BILIRUBIN,TOTAL 0.1 mg/dL (0.2-1.0); TOTAL PROTEIN, SERUM 6.3 g/dL (6.4-8.2)
[2018-05-21 08:00] VITALS: BP 101/70
[2018-05-21] MEDS: MULTIVITAMINS,THERAPEUTIC TABLET PO SCH (08:51)
[2018-05-21] MEDS: FOLIC ACID 1 MG TABLET PO SCH (08:51)
[2018-05-21] MEDS: THIAMINE HCL 100 MG TABLET PO SCH (08:51)
[2018-05-21] MEDS: TOPIRAMATE 25 MG TABLET PO SCH ×2 (08:51→16:38)
[2018-05-21] MEDS: ESCITALOPRAM OXALATE 10 MG TABLET PO SCH (08:52)
[2018-05-21] MEDS: TELMISARTAN HCTZ PO SCH (08:52)
[2018-05-21] MEDS: CHOLECALCIFEROL 1,000 UNIT TABLET PO SCH (08:52)
[2018-05-21] MEDS: FAMOTIDINE 20 MG TABLET PO SCH (08:53)
[2018-05-21] MEDS ORDERED: DIAZEPAM 5 MG TABLET PO SCH (09:00)
--- NOTE | 2018-05-21 09:00 | NUR ---
PRANAV 15 patient presents with headache, sensitivity to light, nausea and increased anxiety Toradol 30mg IM PRN given and Zofran 4mg SL PRN along with scheduled 5 mg PO Valium
[2018-05-21] MEDS: ONDANSETRON ODT 4 MG TAB.RAPDIS SL PRN ×3 (09:10→22:19)
[2018-05-21] MEDS: KETOROLAC TROMETHAMINE 30 MG INJ IM PRN ×3 (09:10→22:51)
--- NOTE | 2018-05-21 09:10 | NUR ---
PRN Toradol 30mg IM in Right gluteus for pain 8/10- headache, left side rib pain Zofran 4mg SL for nausea, no emesis
--- NOTE | 2018-05-21 10:10 | NUR ---
PRN Reassess Patient states Toradol was effective or body aches , not so much for headache Zofran was effective, nausea ceased
[2018-05-21 12:00] VITALS: BP 96/49
--- NOTE | 2018-05-21 12:00 | NUR ---
CIWA 14 patient presents with headache, sensitivity to light, nausea and increased anxiety
[2018-05-21] MEDS ORDERED: SUMATRIPTAN SUCCINATE 50 MG TABLET PO ONE (13:00)
--- NOTE | 2018-05-21 13:00 | NUR ---
PRN Clonidine 0.1mg PO given for increased anxiety, chills and agitation MD ordered 1 x Imitrex 50mg PO for migraine type headache
[2018-05-21] MEDS: CLONIDINE HCL 0.1 MG TABLET PO PRN ×2 (13:03→20:44)
[2018-05-21] MEDS ORDERED: CLON0.1T14 PO (13:15)
[2018-05-21] MEDS ORDERED: ESCI20TA PO (13:15)
[2018-05-21] MEDS ORDERED: QUET25TA PO (13:15)
[2018-05-21] MEDS ORDERED: HYDR-3895 PO (13:15)
--- NOTE | 2018-05-21 14:00 | NUR ---
PRN Reassess Patient is still anxious after having an upsetting call with her daughter, redirected to try to use non pharmaceutical interventions, lights low and TV OFF, Will reassess
[2018-05-21 16:00] VITALS: BP 115/73
--- NOTE | 2018-05-21 16:40 | NUR ---
CIWA 16 Patient complains of general body aches, headache/migraine, nausea, she is restless, anxious and irritable Clonidine given PRN @ 1300, Zofran and Vistaril @ 1520 and Toradol @ 1640
--- NOTE | 2018-05-21 16:40 | NUR ---
PRN Toradol 30mg IM given in Left Gluteus for general body pain/ headache 02/05
--- NOTE | 2018-05-21 17:40 | NUR ---
PRN Reassess Toradol was effective, patient states pain level more tolerable 3/10
--- NOTE | 2018-05-21 18:58 | NUR ---
End Of Shift Patient is a 47 yr old female who was admitted to [facility] on 05/17/18 for a medically supervised withdrawal from ETOH ( Wine), she has completed a 4 day Valium taper. PRN medications given on this shift : Clonidine, Vistaril , Zofran x2 and Toradol x2, her last CIWA was 16 @ 1640, her withdrawal symptoms present as increased anxiety, irritability, restlessness, chills, diaphoresis, generalized body aches, headaches and lethargy. She had a fluid intake of 3100 ML, 6 Voids and 2 BM. Continue to follow MD plan of care. Endorsed to application support developer.
--- NOTE | 2018-05-21 19:30 | NUR ---
START OF SHIFT Pt is a 47 y/o female admitted on 05/17/18 for ETOH withdrawal. Pt finished a 4 day Valium taper and is scheduled to be d/c tomorrow. Last CIWA 16 and PRN Toradol x 2, Zofran odt x 2, Imitrex, Clonidine, and Vistaril administered during day shift. Pt received EKG today, results normal. Upon assessment pt presents with anxiety, agitation, restlessness, difficulty falling asleep, headache, intermittent nausea, and unkempt room. Medications due. Safety measures in place. Call light within reach. Will continue to monitor.
[2018-05-21 20:00] VITALS: BP 109/72
--- NOTE | 2018-05-21 20:00 | NUR ---
CIWA ASSESSMENT CIWA 10. Pt presents with anxiety, agitation, restlessness, difficulty falling asleep, headache, intermittent nausea, and unkempt room.
[2018-05-21] MEDS: ACETAMINOPHEN 325 MG TABLET PO PRN (20:43)
--- NOTE | 2018-05-21 20:44 | NUR ---
PRN TYLENOL AND CLONIDINE ADMINISTRATION Pt presents with headache "9/10" and anxiety, agitation, intermittent sweats. Safety measures in place. Call light within reach. Will continue to monitor.
--- NOTE | 2018-05-21 21:44 | NUR ---
PRN TYLENOL AND CLONIDINE REASSESSMENT Pt reports her headache, anxiety, agitation and sweats have improved to tolerable levels. Safety measures in place. Call light within reach. Will continue to monitor.
[2018-05-21] MEDS: QUETIAPINE FUMARATE 25 MG TABLET PO PRN (22:18)
--- NOTE | 2018-05-21 22:18 | NUR ---
PRN SEROQUEL, ZOFRAN ODT, AND VISTARIL ADMINISTRATION Pt requests sleep aid and medication for anxiety. Pt also complains of nausea and abdominal discomfort. Pt able to tolerable fluids and snacks, but wants Zofran to help. Safety measures in place. Call light within reach. Will continue to monitor.
--- NOTE | 2018-05-21 22:51 | NUR ---
PRN TORADOL ADMINISTRATION Pt reports pain 9/10 generalized body pain and left-sided rib pain. Pt presents with facial grimacing. Safety measures in place. Call light within reach. Will continue to monitor.
--- NOTE | 2018-05-21 23:21 | NUR ---
PRN SEROQUEL, ZOFRAN, VISTARIL AND TORADOL REASSESSMENT Pt remains awake, but states, "I'm starting to feel really tired but I just want to continue making this bracelet for my daughter a little longer than I'll sleep. Pt reports nausea has ceased. Reports that her anxiety and pain reduced to a tolerable level. Safety measures in place. Call light within reach. Will continue to monitor.
--- NOTE | 2018-05-22 | NUR ---
CIWA ASSESSMENT Pt laying in bed with eyes closed, CIWA deferred, to be assessed when pt is awake per orders. Vitals refused. Respirations even and unlabored. Safety measures in place. Call light within reach. Will continue to monitor.
[2018-05-22 04:00] VITALS: BP 105/76
[2018-05-22] MEDS: ACETAMINOPHEN 325 MG TABLET PO PRN (04:01)
[2018-05-22] MEDS: CLONIDINE HCL 0.1 MG TABLET PO PRN (04:01)
--- NOTE | 2018-05-22 04:01 | NUR ---
CIWA ASSESSMENT/PRN CLONIDINE AND TYLENOL ADMINISTRATION CIWA 8. Pt presents with anxiety, restlessness, and difficulty staying asleep. Pt reports pain 9/10 generalized body pain and left rib pain. Safety measures in place. Call light within reach. Will continue to monitor.
--- NOTE | 2018-05-22 05:01 | NUR ---
PRN CLONIDINE AND TYLENOL REASSESSMENT Pt laying in bed with eyes closed, medications noted effective. Safety measures in place. Call light within reach. Will continue to monitor.
[2018-05-22] MEDS: KETOROLAC TROMETHAMINE 30 MG INJ IM PRN (05:47)
[2018-05-22] MEDS: HYDROXYZINE PAMOATE 25 MG CAPSULE PO PRN (05:51)
--- NOTE | 2018-05-22 05:51 | NUR ---
PRN VISTARIL AND TORADOL ADMINISTRATION Pt requests Toradol for 9/10 generalized body pain. Pt is moaning and presents with facial grimacing. Pt requests Vistaril for anxiety. Safety measures in place. Call light within reach. Will continue to monitor.
--- NOTE | 2018-05-22 06:21 | NUR ---
PRN TORADOL REASSESSMENT Pt laying in bed with eyes closed, medication noted effective. Safety measures in place. Call light within reach. Will continue to monitor.
--- NOTE | 2018-05-22 06:51 | NUR ---
PRN VISTARIL REASSESSMENT Pt laying in bed with eyes closed, medication noted effective. Respirations even and unlabored. Safety measures in place. Call light within reach. Will continue to monitor.
--- NOTE | 2018-05-22 07:12 | NUR ---
END OF SHIFT Pt is a 47 y/o female admitted on 05/17/18 for ETOH withdrawal. Pt finished a 4 day Valium taper and is scheduled to be d/c today. Pt presented with anxiety, agitation, restlessness, difficulty falling and staying asleep, headache, intermittent nausea, generalized body pain and unkempt room. Pt also complaining of left rib pain. Scheduled medications and PRN Clonidine x 2, Tylenol x 2, Seroquel, Zofran odt, Vistaril x 2 and Toradol x 2 administered, effective in S/S of withdrawal as verbalized by pt. Last CIWA 6 at 0400. Pt slept 4 hours. Intake 1600 ml, void x 2, stool x 0. Safety measures in place. Call light within reach. Will continue to monitor.
--- NOTE | 2018-05-22 07:30 | NUR ---
Start of shift note; Received report from night nurse. Patient is a 47 year old female, AOX4. Patient completed treatment without any adverse reactions. Patient is medically cleared for discharge per MD. Patient verbalized "i am nervous about my upcoming discharge but i am ready for the next step". All safety measures secured. Will continue to monitor patient.
[2018-05-22 08:00] VITALS: BP 108/82
[2018-05-22] MEDS: THIAMINE HCL 100 MG TABLET PO SCH (08:10)
[2018-05-22] MEDS: MULTIVITAMINS,THERAPEUTIC TABLET PO SCH (08:10)
[2018-05-22] MEDS: TOPIRAMATE 25 MG TABLET PO SCH (08:11)
[2018-05-22] MEDS: TELMISARTAN HCTZ PO SCH (08:11)
[2018-05-22] MEDS: CHOLECALCIFEROL 1,000 UNIT TABLET PO SCH (08:11)
[2018-05-22] MEDS: FOLIC ACID 1 MG TABLET PO SCH (08:11)
[2018-05-22] MEDS: FAMOTIDINE 20 MG TABLET PO SCH (08:11)
[2018-05-22] MEDS: ESCITALOPRAM OXALATE 10 MG TABLET PO SCH (08:11)
[2018-05-22] MEDS: LEVOTHYROXINE SODIUM 137 MCG TABLET PO SCH (08:11)
--- NOTE | 2018-05-22 10:00 | NUR ---
Discharge note; Patient is AOX4, medically cleared for discharge per MD. Patient completed treatment without any adverse reactions. All valuables, belongings, prescriptions, home medications gave to patient. Patient denies suicidal ideations or homicidal ideation. Patient was discharged at exactly 1000 on 05/22/18. Patient left in a stable condition.
== END 2018-05-22 10:00 | disposition home or self-care (01) | DRG 895 ==
LOC: SRC 14:20
PROVIDERS: ADMIT Family Medicine Addiction Medicine; ATTEND Family Medicine Addiction Medicine
PROC: HZ2ZZZZ Detoxification Services for Substance Abuse Treatment (ICD-10-PCS; principal; 2018-05-17)
PROC: HZ31ZZZ Individual Counseling for Substance Abuse Treatment, Behavioral (ICD-10-PCS; 2018-05-19)
DX: F10.230 Alcohol dependence with withdrawal, uncomplicated (principal); F10.220 Alcohol dependence with intoxication, uncomplicated; Y90.8 Blood alcohol level of 240 mg/100 ml or more; Z88.0 Allergy status to penicillin; Z91.040 Latex allergy status; L30.9 Dermatitis, unspecified; M70.70 Other bursitis of hip, unspecified hip; Z90.710 Acquired absence of both cervix and uterus; F17.200 Nicotine dependence, unspecified, uncomplicated; E86.0 Dehydration; R74.0 Nonspecific elevation of levels of transaminase and lactic acid dehydrogenase [LDH]; E28.310 Symptomatic premature menopause; I95.9 Hypotension, unspecified
CPT/HCPCS: 36415; 83690; 84443; 84703; 85025; 86580; 86592; 86803; 87340; 87806; 93005; J1885; J2405; J3411; Q0162; Q0163